=== PATIENT | female | born 1950 | race Two or more races ===

== ENCOUNTER 2017-11-28 14:52 | Day surgery (SDC) | payer MEDICARE, OTHER, MEDICAID ==
[~2017-11-28 14:52] MED LIST: CEFAZOLIN 1 GM INJ; LIDOCAINE 2% (SDV) 5 ML INJ; PROPOFOL 200 MG INJ
[2017-11-28] MEDS ORDERED: FENTAnyl 50 MCG/ML VIAL (16:45)
[2017-11-28] MEDS: LIDOCAINE 1% (MPF) 30 ML INJ (16:46)
[2017-11-28] MEDS ORDERED: MIDAZOLAM 1 MG/ML 2 ML INJ (16:46)
[2017-11-28] MEDS: BUPIVACAINE 0.5% (SDV) 30 ML INJ (16:46)
[2017-11-28] MEDS: POLYMYXIN/BACITRACIN 1L IRRIG (16:47)
[2017-11-28] MEDS ORDERED: TRIMETHOBENZAMIDE 100 MG/ML VIAL IM (17:30)
[2017-11-28] MEDS ORDERED: ONDANSETRON 4 MG INJ IV (17:30)
[2017-11-28] MEDS ORDERED: FENTAnyl 50 MCG/ML VIAL IV ×3 (17:30)
[2017-11-28] MEDS ORDERED: MEPERIDINE 25 MG INJ IV (17:30)
[2017-11-28] MEDS ORDERED: OXYCODONE/ACETAMINOPHEN (5/325) TAB PO ×2 (17:30)
[2017-11-28] MEDS ORDERED: ALBUTEROL 0.083% (NEB) 2.5 MG/3 ML AMP HHN (17:30)
[2017-11-28] MEDS ORDERED: hydrALAzine 20 MG INJ IV (17:30)
[2017-11-28] MEDS ORDERED: EPHEDrine SULFATE 50 MG/5 ML SYG IV (17:30)
[2017-11-28] MEDS ORDERED: DIPHENHYDRAMINE 50 MG INJ IV (17:30)
[2017-11-28] MEDS ORDERED: LABETALOL HCL 20MG INJ IV (17:30)
[2017-11-28] MEDS ORDERED: IPRATROPIUM (NEB) 0.5 MG/2.5 ML AMP HHN (17:30)
[2017-11-28] MEDS ORDERED: HYDROmorphONE (0.2 MG/ML) 10ML SYG IV ×3 (17:30)
[2017-11-28] MEDS ORDERED: MIDAZOLAM 1 MG/ML 2 ML INJ IV (17:30)
[2017-11-28] MEDS ORDERED: HYDROCODONE/APAP (5/325) TAB PO (18:00)
[2017-11-29] MEDS ORDERED: LACTATED RINGER'S 1,000 ML IV* (06:30)
== END 2017-11-28 18:41 | disposition home or self-care (01) ==
LOC: SDS 14:52
DX: G56.02 Carpal tunnel syndrome, left upper limb (principal); M65.4 Radial styloid tenosynovitis [de Quervain]; I10 Essential (primary) hypertension
CPT/HCPCS: 25000